=== PATIENT | male | born 1990 | race Caucasian/White ===

== ENCOUNTER 2020-01-01 21:45 | Emergency (ER) | payer MEDICAID ==
[~2020-01-01] VITALS: Ht 182.9 cm; Wt 106.8 kg
[2020-01-01 21:51] VITALS: Ht 182.9 cm; Wt 106.8 kg
[2020-01-01 22:47] LABS: HEMATOCRIT 44.4 % (42.0-54.0); HEMOGLOBIN 14.7 g/dL (13.5-17.5); LYMPHOCYTES 29.6 % (15-50); MCH 28.7 pg (26.0-34.0); MCHC 33.1 g/dL (31.0-37.0); MCV 86.5 fL (80.0-100.0); MEAN PLATELET VOLUME 9.5 fL (7.4-10.4); NEUTROPHILS 63.7 % (40-80); PLATELET COUNT 250 10x3/uL (130-400); RBC 5.13 10x6/uL (4.20-6.10); WBC 8.4 10x3/uL (4.8-10.8)
[2020-01-01 23:03] LABS: CALC OSMOLALITY 278 mosm/kg (275-300); CALCIUM 8.9 mg/dL (8.5-10.1); CARBON DIOXIDE 27.4 mmol/L (21.0-32.0); CHLORIDE - SERUM 101 mmol/L (98-107); GLUCOSE 107 mg/dL (74-106); POTASSIUM - SERUM 3.7 mmol/L (3.5-5.1); SODIUM 139 mmol/L (136-145); UREA NITROGEN 15 mg/dL (7-18); eGFR NON AFRICAN AMERICAN > 90 mL/min (90-120)
[2020-01-01 23:08] LABS: ALBUMIN 4.2 g/dL (3.4-5.0); ALKALINE PHOSPHATASE 91 U/L (30-120); ALT (SGPT) 81 U/L (10-68); BILIRUBIN - TOTAL 0.13 mg/dL (0.2-1.3); PROTEIN - SERUM 7.8 g/dL (6.4-8.2)
[2020-01-01 23:59] VITALS: BP 131/81
== END 2020-01-01 23:59 | disposition home or self-care (01) ==
LOC: D.ER 21:45
PROVIDERS: Family Medicine
DX: R55 Syncope and collapse (principal); F41.9 Anxiety disorder, unspecified